=== PATIENT | male | born 1990 | race Caucasian/White ===

== ENCOUNTER 2017-03-14 16:58 | Emergency (ER) | payer OTHER ==
[2017-03-14 17:23] VITALS: BP 139/66
--- NOTE | 2017-03-14 17:40 | UC ---
Skin Complaint HPI - HPI Summary HPI Summary: Pt presents to [facility] with 2 concerns: 1) pt's envronemnt has ongoing issue with bed bugs. Pt has been working to rid the house of the bugs. Pt with multiple, pruritic bites on b/l legs. PT has not taken anything to help with the itching. No drainage. 2) pt with cough productive of yellow-green sputum x 3 days. + fever + fatigue. No n/v. + PO. No otc meds. No ear pain + sinus congestion and PND. decreased sleep second to cough Pt does smoke 1ppd Pts medications reviewed at this visit - History of Current Complaint Chief Complaint: UCRespiratory Time Seen by Provider: 03/14/17 17:38 Stated Complaint: RASH Hx Obtained From: Patient Onset/Duration: Gradual Onset Skin Exposure Onset/Duration: Days Ago Onset Severity: Moderate Current Severity: Moderate Location: Other - b/l LE Character: Pruritus Aggravating: Nothing Alleviating: Nothing Associated Signs & Symptoms: Negative: Nausea, Vomiting - Allergy/Home Medications Allergies/Adverse Reactions: Allergies Allergy/AdvReac Type Severity Reaction Status Date / Time No Known Allergies Allergy Verified 03/14/17 17:23 Review of Systems Constitutional: Fever Skin: Negative Eyes: Negative ENT: Sinus Congestion, Sinus Pain/Tenderness Respiratory: Shortness Of Breath, Cough Cardiovascular: Negative Gastrointestinal: Negative Genitourinary: Negative Motor: Negative Neurovascular: Negative Musculoskeletal: Negative Neurological: Negative Psychological: Negative All Other Systems Reviewed And Are Negative: Yes PMH/Surg Hx/FS Hx/Imm Hx Previously Healthy: Yes - Surgical History Surgical History: None - Family History Known Family History: Positive: Diabetes - Social History Occupation: Employed Full-time Lives: With Family Alcohol Use: None Substance Use Type: None Smoking Status (MU): Heavy Every Day Tobacco Smoker Type: Cigarettes Amount Used/How Often: 1 ppd Physical Exam Triage Information Reviewed: Yes Appearance: Well-Appearing, No Pain Distress - tired appearing, congested, Well- Nourished Vital Signs: Initial Vital Signs Temp 101 F 03/14/17 17:19 Pulse 87 03/14/17 17:19 Resp 16 03/14/17 17:19 BP 139/66 03/14/17 17:19 Pulse Ox 98 03/14/17 17:19 Vital Signs Reviewed: Yes Eye Exam: Normal Eyes: Positive: Conjunctiva Clear ENT: Positive: Hearing grossly normal, Pharynx normal, Nasal congestion, Nasal drainage, TMs normal Dental Exam: Normal Neck exam: Normal Neck: Positive: Supple, Nontender Respiratory Exam: Normal Respiratory: Positive: Chest non-tender, No respiratory distress, No accessory muscle use, Wheezing - few scattered wheeze no rhochni, coarse cough, speaking full easy sentences Cardiovascular Exam: Normal Cardiovascular: Positive: RRR, No Murmur, Pulses Normal Abdominal Exam: Normal Abdomen Description: Positive: Nontender, No Organomegaly Bowel Sounds: Positive: Present Musculoskeletal Exam: Normal Neurological Exam: Normal Psychological Exam: Normal Skin: Positive: Other - Pt with multiple bite appearing lesions to b/l LE + pruritic, some scabed no warmth, no discharge no fluctuance - descrete lesion , erythematough base b/l LE - calf, few on thighs, few on b/l forearms. Course/Dx - Course Course Of Treatment: Pt with multiple wounds on b/l LE and foreamrs c/w bite wound - pt reports bed bugs in home. wounds prurutici. Pt also wtih fever, coarse cough - tobacco user. Will give steroids for itching and bronchitis. abx. secretion hygeine. work note. pcp f/u. return precautions discussed. pt comfortable and in agreement with plan - Diagnoses Provider Diagnoses: bronchitis, insect bites Discharge - Discharge Plan Condition: Stable Disposition: HOME Prescriptions: Amoxicillin/Clavulanate TAB* [Augmentin TAB 875*] 875 mg PO BID #20 tab Methylprednisolone [Medrol Dosepak 4 MG*] 0 mg PO .SEE KRISS INSTRUCTION #1 tab Patient Education Materials: Acute Bronchitis (ED), Bed Bugs (ED) Forms: *Work Release Referrals: Jj Goldstein MD [Primary Care Provider] - Additional Instructions: okay to continue taking Benadryl for itching - do not drive while taking as may cause drowsiness continue with frequent house cleaning, vacuuming, washing bed sheets for bed bugs- you may need to bring in a professional ware cleaner work to decrease cigarette smoking take prednisone and antibiotics as prescribed until gone stay well hydrated. Avoid excess caffeine and alcohol call your doctor to schedule a follow-up appointment. Call your doctor or return with questions or concerns
[2017-03-14] MEDS ORDERED: Acetaminophen TAB* 325 MG PO ONE (17:57)
== END 2017-03-14 18:18 | disposition home or self-care (01) ==
LOC: UCCORT 16:58
DX: S50.862A Insect bite (nonvenomous) of left forearm, initial encounter (principal); S50.861A Insect bite (nonvenomous) of right forearm, initial encounter; S80.862A Insect bite (nonvenomous), left lower leg, initial encounter; S80.861A Insect bite (nonvenomous), right lower leg, initial encounter; W57.XXXA Bitten or stung by nonvenomous insect and other nonvenomous arthropods, initial encounter; Y93.9 Activity, unspecified; Y92.9 Unspecified place or not applicable; J40 Bronchitis, not specified as acute or chronic; F17.210 Nicotine dependence, cigarettes, uncomplicated
CPT/HCPCS: 99202; A9270-GY; G0463

== ENCOUNTER 2017-03-19 22:38 | Observation (INO) | payer SELFPAY ==
[2017-03-19] MEDS ORDERED: NS 0.9% 1000 ML* 1,000 ML IV ONE (23:28)
[2017-03-20] MEDS ORDERED: diPHENhydraMINE IV* 50 MG/ML 1 ml VIAL (BENADRYL) IV PRN (00:33)
[2017-03-20] MEDS ORDERED: Ondansetron INJ* 2 MG/ML VIAL IV PRN (00:33)
[2017-03-20] MEDS ORDERED: Acetaminophen TAB* 325 MG PO PRN (00:33)
[2017-03-20] MEDS ORDERED: HYDROcodone/ACETAMIN 5-325 MG* 1 TAB PO PRN (00:33)
[2017-03-20 00:42] LABS: Comments Flag Yes; Hematocrit 50 % (42-52); Hemoglobin 17.1 g/dl (14.0-18.0); Mean Corpuscular HGB Conc 34 g/dl (31-36); Mean Corpuscular Hemoglobin 31 pg (27-31); Mean Corpuscular Volume 89 fL (80-94); Mean Platelet Volume 8 um3 (7.4-10.4); Red Blood Count 5.59 10^6/ul (4.0-5.4); Red Cell Distribution Width 13 % (10.5-15); White Blood Count 25.9 10^3/ul (3.5-10.8)
[2017-03-20 00:43] LABS: Add Diff/Slide Review? Slide Review Added
[2017-03-20] MEDS ORDERED: Mouth Piece, Nicotine* 1 EACH CARTRIDGE INH PRN (00:44)
[2017-03-20] MEDS ORDERED: Nicotine Inhaler* 10 MG AMP INH PRN (00:44)
[2017-03-20] MEDS ORDERED: NS 0.9% 1000 ML* 1,000 ML IV SCH (00:45)
[2017-03-20 00:57] LABS: Albumin 3.6 g/dL (3.2-5.2); BUN/Creatinine Ratio 13.2 (8-20); Calcium 8.9 mg/dL (8.6-10.3); EGFR African American 157.1 (>60); EGFR Non-African American 122.1 (>60); Globulin 2.8 g/dL (2-4); Potassium 3.3 mmol/L (3.5-5.0); Total Bilirubin 0.4 mg/dL (0.2-1.0); Total Protein 6.4 g/dL (6.4-8.9)
--- NOTE | 2017-03-20 00:58 | PN ---
Progress Note - Progress Note Date of Service: 03/20/17 Note:
[2017-03-20] MEDS: Nystatin TOP POWDER* 15 GM BTL TOPICAL SCH ×4 (02:14→22:40)
--- NOTE | 2017-03-20 02:31 | HP ---
CC: Dr. Goldstein * HISTORY AND PHYSICAL: DATE OF ADMISSION: 03/20/17 PRIMARY CARE PROVIDER: Dr. Goldstein. CHIEF COMPLAINT: Rash. HISTORY OF PRESENT ILLNESS: Mr. Muir is a 26-year-old male, who approximately 2 weeks ago developed what he felt were bed bug bites. He noted that bites started to appear somewhat red. At that same time, he began to develop blisters in the roof of his mouth and on his palms. His daughter was diagnosed with hand, foot, and mouth disease. The patient continued with slight redness surrounding these questionable bed bug bites and with what he felt was hand, foot, and mouth disease; however, was seen in urgent care on the Friday prior to admission and was started on Medrol-Dosepak and Augmentin for a questionable bronchitis. Approximately 1 to 2 days after beginning the Augmentin, he developed progressive redness to the legs, arms, chest, back, and face. The patient has also developed large blisters on his palms, soles, and over his knees. Additionally, his ears on the helix have reportedly blistered and then seeped fluid and crusted over. The patient also noted worsening of the blisters within his mouth approximately 2 to 3 days ago. His groin is also very red and the tissues appear to be seeping fluid per his girlfriend. He has mild pain, especially noted in his hands, feet, and legs. He has had no fever. He does note some mild pain with swallowing. He has had no eye issues. PAST MEDICAL HISTORY: None. PAST SURGICAL HISTORY: None. MEDICATIONS: 1. Medrol Dosepak. 2. Augmentin 875 mg p.o. b.i.d. ALLERGIES: PENICILLIN is being listed now, but I believe this is a new allergy. FAMILY HISTORY: Mom is living, she is 54. He states that she has numerous medical problems but denies coronary artery disease, diabetes, hypertension, stroke, and cancer. Dad at the age of 45 of sepsis. SOCIAL HISTORY: The patient smokes 1 pack per day. He does not drink alcohol. He denies any recreational drug use. 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 He has 2 children. His girlfriend, Chery, would be his healthcare proxy. REVIEW OF SYSTEMS: The patient denies any fevers. His appetite has been poor over the last couple of days. No chest pain, no edema, no cough. He has had some mild shortness of breath that he is attributing to the diagnosis of bronchitis approximately 1 week ago. He has had some mild nausea, no vomiting. He has had diarrhea over the last couple of days going 2 or 3 times per day. No abdominal pain, no hematochezia, no hematuria, no dysuria. He admits to generalized weakness. No sudden change in his vision. He has a mild sore throat upon swallowing. No joint pains or muscle pains. He has the diffuse rash as noted above, no anxiety or depression. PHYSICAL EXAMINATION GENERAL: The patient is a well-developed, young male sitting in the stretcher with a very visible, markedly erythematous diffuse rash on his feet, legs, arms , and face. VITAL SIGNS: Blood pressure 132/76, pulse 101, respirations 18, temp 98.7, O2 sat 99% on room air. HEENT: Pupils are equal, they are round, they react to light. Extraocular movements intact. Oropharynx is clear. There appears to be ruptured blisters on the roof of the patient's mouth and questionable involvement on the mucosal surface of the lower lip. The patient has poor dentition. There is no submandibular, cervical, or supraclavicular adenopathy. Thyroid is not enlarged. No thyroid nodules are noted. PULMONARY: Lungs are clear to auscultation bilaterally. CARDIAC: Normal S1 and S2. Regular rate and rhythm. I do not appreciate any murmurs. There is no lower extremity edema. ABDOMEN: Bowel sounds are present. Abdomen is soft, nontender, and nondistended. MUSCULOSKELETAL: There is no cyanosis or clubbing of the digits. There is full active range of motion of all 4 extremities. NEURO: Cranial nerves II through XII grossly intact. Sensation is intact to light touch throughout. Strength is 5/5 and symmetric in both the upper and lower extremities bilaterally. PSYCH: The patient is alert, he is oriented x3, affect appears appropriate. SKIN: Warm and dry. There is a diffuse erythematous macular plaque-appearing rash noted on the patient's dorsum of the feet, legs, trunk, arms, and face. The erythema is appearing to be confluent in some areas and as round macules in others, especially on the arms, chest, and back. The rash is most confluent on the lower extremities. There are large bullae on the palms bilaterally and the soles of the feet. There are also bullae noted over the extensor surface of the knees bilaterally. There appears to be sloughing of the skin between the toes on both feet. There are small pustules noted overlying the lower thighs, knees, and upper legs. There are other areas of the rash where there appeared to be small crusted areas. The helix on both ears appears to be crusted. In the patient's groin, there appears to be a candidal infection with significant weeping of fluid. See pictures placed in progress note in the electronic medical record. DIAGNOSTIC STUDIES/LAB DATA: Labs are pending. Chest x-ray to my interpretation appears to be clear. ASSESSMENT AND PLAN: Mr. Muir is a 26-year-old male who approximately 2 weeks ago had what he felt were bed bug bites, then hand, foot, and mouth disease. He then went to the urgent care the Friday prior to this admission where he was prescribed a Medrol Dosepak and Augmentin. Approximately 1 to 2 days after starting Augmentin, he developed extensive, progressive, erythematous rash with bullae formation on the palms and folds of the feet. 1. Diffuse erythematous rash. My differential diagnosis includes Saucedo- Kirk syndrome versus acute generalized exanthematous pustulosis versus erythema multiforme. At this point, the patient's Augmentin will be discontinued and PENICILLIN will be listed as an allergy. He will receive IV fluid hydration as well as Benadryl for itching, as itching does appear to be a large component to the patient's symptoms. He will have Tylenol and Narco available for pain control. An Infectious Disease consultation will be requested tomorrow. A punch biopsy would also likely be beneficial as to determine the cause of the patient's rash. At this point, I am still waiting on the patient's lab work. If there are any marked abnormalities, I will act upon these. At this point, I do not believe the patient needs to be transferred to higher level of care; however, if Saucedo-Kirk syndrome becomes the leading diagnosis and he begins to slough off more skin, perhaps he would benefit from transfer. 2. DVT prophylaxis. According to the Adult Thrombosis Prophylaxis Risk Factor Assessment Guide, the patient has a total risk factor score of 0 making him low risk. Ambulation will be utilized as DVT prophylaxis. 3. Code status is full, and again the patient indicates that his girlfriend, Chery, is his healthcare proxy. TIME SPENT: Seventy minutes was spent admitting this patient. [id number]/[facility] #: [id number] SHARRI
--- NOTE | 2017-03-20 07:42 | RAD ---
HISTORY: Generalized rash COMPARISONS: None VIEWS:1: Single frontal portable view of the chest at 11:55 PM FINDINGS: LINES AND TUBES: None. CARDIOMEDIASTINAL SILHOUETTE: The cardiomediastinal silhouette is normal for portable technique. PLEURA: The costophrenic angles are sharp. No pleural abnormalities are noted. LUNG PARENCHYMA: The lungs are clear. ABDOMEN: The upper abdomen is clear. There is no subphrenic gas. BONES AND SOFT TISSUES: No bone or soft tissue abnormalities are noted. IMPRESSION: NO ACTIVE CARDIOPULMONARY DISEASE.
[2017-03-20] MEDS: Nicotine PATCH 21 MG/24 HR* PATCH TRANSDERM SCH (08:33)
--- NOTE | 2017-03-20 08:49 | PN ---
Subjective Date of Service: 03/20/17 Interval History: Patient seen this morning. Timeline reviewed with the patient. States that first skin issues he had were due to bed bug bites that were diffuse on his arms and legs. He said his brother at home had them as well. This preceded the palm/sole/mouth symptoms he had after kissing his daughter who was diagnosed with HFM. He presented to on Friday with above symptoms as well as productive cough and fever and was diagnosed with HFM, bronchitis and was given PO steroids and Augmentin which he began on Friday. He then noticed significant erythema spreading on Friday which was followed by some eruption and crusting in some areas. He reports blistering (in areas not involved with HFM) on the palms, soles and ears. The blistering on the ears have erupted and crusted over. Last dose of Augmentin and steroids was 03/19 evening. He feels that his symptoms do not seem any worse today than yesterday, may be improving a bit. Family History: Unchanged from Admission Social History: Unchanged from Admission Past Medical History: Unchanged from Admission Objective Active Medications: Acetaminophen (Tylenol Tab*) 650 mg PO Q4H PRN Hydrocodone Bitart/Acetaminophen ([place] 5-325 Tab*) 1 tab PO Q4H PRN Device (Nicotine Mouth Piece*) 1 each INH .USE WITH NICOTROL PRN Diphenhydramine HCl (Benadryl Iv*) 25 mg IV Q6H PRN Sodium Chloride (Ns 0.9% 1000 Ml*) 1,000 mls @ 100 mls/hr IV PER RATE AMINA Nicotine (Nicotine Inhaler*) 10 mg INH Q2H PRN Nicotine (Nicotine Patch 21 Mg/24 Hr*) 1 patch TRANSDERM DAILY AMINA Nystatin (Nystatin Top Powder*) 1 applic TOPICAL TID AMINA Ondansetron HCl (Zofran Inj*) 4 mg IV Q6H PRN Pharmacy Profile Note (Nicotine Patch Removal Note*) 1 note FOLLOW UP [facility] Vital Signs 03/20/17 03/20/17 03/20/17 00:36 01:00 01:25 Temperature 98.0 F Pulse Rate 82 Respiratory 18 18 Rate Blood Pressure 126/64 (mmHg) O2 Sat by Pulse 96 100 Oximetry 03/20/17 01:28 Temperature 98.0 F Pulse Rate 82 Respiratory 16 Rate Blood Pressure 126/64 (mmHg) O2 Sat by Pulse 100 Oximetry Oxygen Devices in Use Now: None Appearance: Young, M, laying in bed in NAD Eyes: No Scleral Icterus Ears/Nose/Mouth/Throat: Mucous Membranes Moist Neck: NL Appearance and Movements; NL JVP Respiratory: Symmetrical Chest Expansion and Respiratory Effort, Clear to Auscultation Cardiovascular: NL Sounds; No Murmurs; No JVD, RRR Abdominal: NL Sounds; No Tenderness; No Distention Lymphatic: No Cervical Adenopathy Extremities: No Edema Skin: - - Diffuse, erythematous rash involving face, arms, legs, torso. Some areas are more macular, some areas are raised, more confluence in LEs. Numerous areas with small pustules, particualrly in LEs. Some blistering on B/L palms and soles, negative Nikolsky's sign, some skin breakdown between the toes with some malodourous purulence, also more confluent areas and purulence in the groin , various areas also with significant crusting, particularly the ears, some oral enanthem (small pale vesicles), no significant mucositis Neurological: Alert and Oriented x 3 Result Diagrams: 03/20/17 00:30 03/20/17 00:30 Assess/Plan/Problems-Billing Assessment: Rash in the setting of recent exposure to hand foot and mouth disease, bed bugs and significant worsening ~48 hours after initiation of Augmentin in a 26 yo M - Patient Problems (1) Rash Current Visit: Yes Comment: Appreciate ID assistance. Certianly patient has some areas c/w AGEP, particularly in the LEs, c/w leukocytosis (increased neutrophils and eosinophils). Has already had some crusting over of the lesions. Dr. Grimaldo evaluated the patient, thinks there is also a component of Erythema Multiforme and ?very mild SJS. Augmentin discontinued and PCN added to allergies. Dr. Grimaldo recommended Prednisone 40 mg daily which has been ordered. Will continue to monitor another 24 hours to ensure no worsening of symptoms. HIV and syphilis testing ordered in ED pending. (2) DVT prophylaxis Current Visit: Yes Comment: Ambulate
[2017-03-20] MEDS: predniSONE TAB* 20 MG PO SCH (12:08)
[2017-03-20 12:37] LABS: Syphilis Index < 0.1 Index
--- NOTE | 2017-03-20 14:04 | CONS ---
DATE OF CONSULTATION: 03/20/2017. REQUESTING PHYSICIAN: Dr. Bradley. CONSULTING SERVICE: Infectious Disease. REASON FOR CONSULTATION: Rash. IMPRESSION: 1. He has a diffuse erythematous macule and patchy rash. There are some areas on both legs that are superficial pustulosis and his mucosa includes some superficial bulla and erythema, also present on his scrotum and the soles of his feet.Taken together I think most likely continuum of erythema multiforme and Dillon Kirk with a component of acute generalized exanthematous pustulosis. This is an allergic reaction, most likely due to Augmentin, though it could be also postviral allergic reaction. 2. Recent bed bug bites. 3. Recent diagnosis of bronchitis, treated with Augmentin and then a diagnosis of pspd-yulf-kmn-mouth, which is not clear from any of the pictures that he has that he ever had that and they are clear that the rash all came on after taking Augmentin. 4. Leukocytosis due to number one. RECOMMENDATIONS: 1. Prednisone 4 mg a day for the next few days with fluid hydration. He is already getting better today with Benadryl and fluids. 2. After he is better, we will get him skin testing with an data warehouse architect as an outpatient to see if this is definitely a Penicillin or Amoxicillin reaction. 3. HIV and syphilis antibody testing to which he gives verbal consent. HISTORY OF PRESENT ILLNESS: This 26-year-old man with recent bed bug bites about a zmpy-jka-s-half ago, then he developed cough and fever at the same time that his son had jtnx-buxc-wab-mouth disease and he was told that he had hand- izqk-vvd-ijsed and given Augmentin. Then two days later developed macules on his skin, are red and itchy, they coalesce together. He developed swelling and bulla on his feet, hands, and in his mouth and scrotum. Symptoms regressed. He came to the hospital yesterday. He had a white count of 20,000. He was started on Benadryl and fluids. He has decrease in his itching and no new lesions. Today, he has no skin sloughing, just bulla formation. He has not had a reaction like this in the past to Penicillin. PAST MEDICAL HISTORY: None. MEDICATIONS: 1. Vicodin prn. 2. Nicotine inhaler. 3. Nicotine patch. 4. Zofran IV. 5. Benadryl IV. ALLERGIES: PENICILLIN FAMILY HISTORY: No recurrent infections. The mom is 54, unsure of medical problems. Father at age 45 of sepsis. SOCIAL HISTORY: Lives in [place] with his girlfriend and her son. He has no travel or sick contacts. REVIEW OF SYSTEMS: All negative for review of systems except as noted above. PHYSICAL EXAMINATION: General: He is awake, not in distress. Vital Signs: Temperature 37, heart rate 80, respiratory rate 16, blood pressure 126/64, O2 sat 100 percent on room air. HEENT: There is no conjunctival hemorrhage or conjunctival injection. Oropharynx: He has patchy erythema on his buccal mucosa with a sub-semi area of bulla. Neck: Supple without nuchal rigidity. Lymph nodes: There is no cervical, supraclavicular, inguinal, axillary, or epitrochlear lymphadenopathy. Heart: Regular rate and rhythm without murmurs, rubs or gallops. Lungs: Clear to auscultation bilaterally. Abdomen: Soft, nontender, nondistended. Bowel sounds are present. Skin: There is diffuse erythematous macules and patches on arms, trunk, and legs. Some are 1 to 2 cm round patches with central clearing. On the scrotum, there is small bullae, some that are desquamated. On the bottom of his feet, there are 1 to 2 cm bullae, same as on the hands. In the groin, there is some erythema which is more confluent as well. The rash is blanching in general. Musculoskeletal: There is no spine tenderness to palpation. No joint synovitis. Neurologic: He is oriented times three, follows all commands, moves all of his extremities. LABORATORY DATA: White blood cell count 25, hemoglobin 17, platelets 410, creatinine 0.7, ALT 15. Please see impression and recommendations as outlined above which I have discussed with Dr. Bradley. Thank you for asking me to see Mr. Muir in consultation. [id number]/[facility] #: [id number] SHARRI
[2017-03-20] MEDS ORDERED: Nicotine Patch Removal NOTE FOLLOW UP SCH (21:00)
[2017-03-20] MEDS: NS 0.9% 1000 ML* 1,000 ML IV SCH (22:17)
[2017-03-21 05:42] LABS: Hematocrit 51 % (42-52); Hemoglobin 16.8 g/dl (14.0-18.0); Mean Corpuscular HGB Conc 33 g/dl (31-36); Mean Corpuscular Hemoglobin 30 pg (27-31); Mean Corpuscular Volume 92 fL (80-94); Mean Platelet Volume 8 um3 (7.4-10.4); Red Blood Count 5.55 10^6/ul (4.0-5.4); Red Cell Distribution Width 13 % (10.5-15); White Blood Count 25.7 10^3/ul (3.5-10.8)
[2017-03-21 05:46] LABS: Add Diff/Slide Review? Manual Diff Added; Comments Flag Yes
[2017-03-21] MEDS: NS 0.9% 1000 ML* 1,000 ML IV SCH (05:58)
[2017-03-21 06:02] LABS: BUN/Creatinine Ratio 7.5 (8-20); Calcium 8.2 mg/dL (8.6-10.3); EGFR African American 181.7 (>60); EGFR Non-African American 141.2 (>60); Potassium 3.7 mmol/L (3.5-5.0)
[2017-03-21 06:17] LABS: Eosinophils % 24 % (0-6); Neutrophil % 50 % (38-83); Reactive Lymph % 7 % (0-6)
[2017-03-21 06:18] LABS: Macrocytosis 1+; Microcytosis 1+
[2017-03-21] MEDS: Nicotine PATCH 21 MG/24 HR* PATCH TRANSDERM SCH (07:34)
[2017-03-21] MEDS: predniSONE TAB* 20 MG PO SCH (07:37)
[2017-03-21] MEDS: Nystatin TOP POWDER* 15 GM BTL TOPICAL SCH (07:37)
[2017-03-21 08:03] VITALS: BP 119/65
--- NOTE | 2017-03-21 10:09 | DCNOTE ---
Patient seen this morning. He feels rash overall is improving, does not feel that it has spread at all. Some areas in the L arm with a purplish hue, likely SQ petechial bleeding. On exam, rash still diffuse but overall seems improved, less erythematous, some of the pustules in the LEs seem to have opened and drained, small petechial areas surrounding some of the L arm patches. Areas between toes seem to be improved as well. Discharge home on 3 additional days of PO Prednisone. Close PCP follow-up and will need referral for allergy testing.
--- NOTE | 2017-03-22 04:07 | DS ---
CC: Dr. Goldstein DISCHARGE SUMMARY: DATE OF ADMISSION: 03/20/17 DATE OF DISCHARGE: 03/21/17 PRIMARY CARE PROVIDER: Dr. Goldstein. PRINCIPAL DISCHARGE DIAGNOSES: 1. Adverse skin reaction to Augmentin. 2. Acute generalized exanthematous pustulosis. 3. Erythema multiforme. 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 CONSULTANTS DURING HOSPITALIZATION: Dr. Jayjay Grimaldo, Infectious Disease. STUDIES DONE DURING HOSPITALIZATION: Chest x-ray, impression: No active cardiopulmonary disease. DISCHARGE MEDICATION REGIMEN: 1. Prednisone 40 mg by mouth daily x3 days. 2. Benadryl 25 mg by mouth every 6 hours as needed for itching. 3. Nystatin powder 1 application topically 3 times daily to the groin. HISTORY OF PRESENT ILLNESS AND HOSPITAL SUMMARY: Please see the full history of and physical by Dr. Amy Jacobo for full details. Briefly, Mr. Muir is a 26- year-old man with little past medical history, who presented to the hospital after recently being diagnosed with bug bites and hand, foot, and mouth disease, was prescribed a course of Augmentin for possible bronchitis and subsequently de veloped severe skin reaction. The patient had diffuse rash on his head, face, arms, legs, trunk, an d groin. There were macular erythematous areas most confluent in the lower extremities. He also aponte d some blistering in the palms and soles and some pustules most significantly in the lower extremiti es. It was felt that his rash was due to Augmentin, which was stopped. It was felt that his rash w as likely a combination of AGEP, erythema multiforme, and possibly mild Saucedo-Kirk as there was questionable mucosal involvement. The patient was seen by Dr. Grimaldo, who recommended cessation of antibiotics and some oral prednisone. The following day, there was no worsening of the rash and some slight improvement. The patient felt well and he was discharged home with plans for close PCP followup. The patient should also have outpatient allergy referral to undergo allergy testing to neal if he is allergic to amoxicillin specifically or all penicillins. HIV and syphilis testing were negative. TIME SPENT: Total time spent on this discharge 45 minutes. This is a summary of the [facility], please see the full medical record for further details. [id number]/[facility] #: [id number]
--- NOTE | 2017-03-22 20:56 | ED ---
Fabian Stephens Benjamin, scribed for Laxmi Euceda MD on 03/19/17 at 2335 . Skin Complaint - HPI Summary HPI Summary: 26yo male presents with generalized patch red rash all throughout his body. Pt had bed bug bites 2 weeks ago and states his rash initially started 8 days ago. Rash initially started appearing only on his extremities but it is also on his stomach, back, and face. Pt also reports having a fever of 100.1F 4 days ago along with blisters on his palm, and sores in his mouth. His rashes are itchy. Pt had recent dx of bronchitis and pt was rxed amoxicillin and predizone for his bronchitis and bed bug bites. - History of Current Complaint Chief Complaint: EDRashSkinAbscess Time Seen by Provider: 03/19/17 23:02 Stated Complaint: POSS ALLERGIC REACTION Hx Obtained From: Patient, Family/Licensed Final Expense Agents - partner Pain Intensity: 5 - Allergy/Home Medications Allergies/Adverse Reactions: Allergies Allergy/AdvReac Type Severity Reaction Status Date / Time Amoxicillin [From Augmentin] Allergy Rash Verified 03/21/17 06:34 Clavulanic Acid Allergy Rash Verified 03/21/17 06:34 [From Augmentin] Penicillins Allergy Rash Verified 03/20/17 03:51 PMH/Surg Hx/FS Hx/Imm Hx Infectious Disease History: No Infectious Disease History: Denies: Traveled Outside the [place] in Last 30 Days - Family History Known Family History: Positive: Diabetes - Social History Alcohol Use: None Substance Use Type: Reports: None Smoking Status (MU): Heavy Every Day Tobacco Smoker Type: Cigarettes Amount Used/How Often: 1 ppd Review of Systems Positive: Fever Eyes: Negative ENT: Negative Cardiovascular: Negative Respiratory: Negative Gastrointestinal: Negative Genitourinary: Negative Musculoskeletal: Negative Positive: Rash - generalized red patchy rash that is also itchy Neurological: Negative Psychological: Normal All Other Systems Reviewed And Are Negative: Yes Physical Exam Triage Information Reviewed: Yes Vital Signs On Initial Exam: Initial Vitals Temp Pulse Resp BP Pulse Ox 98.7 F 101 18 132/76 99 03/19/17 22:41 03/19/17 22:41 03/19/17 22:41 03/19/17 22:41 03/19/17 22:41 Vital Signs Reviewed: Yes Appearance: Positive: Well-Appearing, No Pain Distress, Well-Nourished Skin: Positive: Other - Coalescing, erythematous s red rash generalized including face. Desquamation between his toes, blisters on hands and soles of feet. Head/Face: Positive: Normal Head/Face Inspection Eyes: Positive: Normal, EOMI ENT: Positive: Normal ENT inspection Neck: Positive: Supple, Nontender Respiratory/Lung Sounds: Positive: Clear to Auscultation, Breath Sounds Present Cardiovascular: Positive: RRR Abdomen Description: Positive: Nontender, Soft Bowel Sounds: Positive: Present Musculoskeletal: Positive: Strength/ROM Intact Neurological: Positive: Sensory/Motor Intact, Alert, Oriented to Person Place, Time, CN Intact II-III Psychiatric: Positive: Affect/Mood Appropriate Diagnostics - Vital Signs Vital Signs Temp Pulse Resp BP Pulse Ox 03/19/17 22:41 98.7 F 101 18 132/76 99 - Laboratory Lab Results: Lab Results 03/20/17 03/20/17 03/20/17 Range/Units 00:30 00:30 00:30 WBC 25.9 H (3.5-10.8) 10^3/ul RBC 5.59 H (4.0-5.4) 10^6/ul Hgb 17.1 (14.0-18.0) g/dl Hct 50 (42-52) % MCV 89 (80-94) fL MCH 31 (27-31) pg MCHC 34 (31-36) g/dl RDW 13 (10.5-15) % Plt Count 410 (150-450) 10^3/ul MPV 8 (7.4-10.4) um3 Neut % (Auto) 62.5 (38-83) % Lymph % (Auto) 16.2 L (25-47) % Stephenson % (Auto) 6.8 (1-9) % Eos % (Auto) 13.8 H (0-6) % Baso % (Auto) 0.7 (0-2) % Absolute Neuts (auto) 16.2 H (1.5-7.7) 10^3/ul Absolute Lymphs (auto) 4.2 (1.0-4.8) 10^3/ul Absolute Monos (auto) 1.8 H (0-0.8) 10^3/ul Absolute Eos (auto) 3.6 H (0-0.6) 10^3/ul Absolute Basos (auto) 0.2 (0-0.2) 10^3/ul Absolute Nucleated RBC 0.02 10^3/ul Nucleated RBC % 0.1 INR (Anticoag Therapy) 1.08 (0.89-1.11) APTT 23.7 L (26.0-36.3) seconds Sodium 130 L (133-145) mmol/L Potassium 3.3 L (3.5-5.0) mmol/L Chloride 94 L (101-111) mmol/L Carbon Dioxide 26 (22-32) mmol/L Anion Gap 10 (2-11) mmol/L BUN 10 (6-24) mg/dL Creatinine 0.76 (0.67-1.17) mg/dL Est GFR ( Amer) 157.1 (>60) Est GFR (Non-Af Amer) 122.1 (>60) BUN/Creatinine Ratio 13.2 (8-20) Glucose 122 H (70-100) mg/dL Lactic Acid (0.5-2.0) mmol/L Calcium 8.9 (8.6-10.3) mg/dL Total Bilirubin 0.40 (0.2-1.0) mg/dL AST 11 L (13-39) U/L ALT 15 (7-52) U/L Alkaline Phosphatase 135 H (34-104) U/L Troponin I 0.00 (<0.04) ng/mL Total Protein 6.4 (6.4-8.9) g/dL Albumin 3.6 (3.2-5.2) g/dL Globulin 2.8 (2-4) g/dL Albumin/Globulin Ratio 1.3 (1-3) Syphilis IgG Antibody (Nonreactive) HIV 1&2 Antibody (Nonreactive) 03/20/17 03/20/17 Range/Units 00:30 00:30 WBC (3.5-10.8) 10^3/ul RBC (4.0-5.4) 10^6/ul Hgb (14.0-18.0) g/dl Hct (42-52) % MCV (80-94) fL MCH (27-31) pg MCHC (31-36) g/dl RDW (10.5-15) % Plt Count (150-450) 10^3/ul MPV (7.4-10.4) um3 Neut % (Auto) (38-83) % Lymph % (Auto) (25-47) % Stephenson % (Auto) (1-9) % Eos % (Auto) (0-6) % Baso % (Auto) (0-2) % Absolute Neuts (auto) (1.5-7.7) 10^3/ul Absolute Lymphs (auto) (1.0-4.8) 10^3/ul Absolute Monos (auto) (0-0.8) 10^3/ul Absolute Eos (auto) (0-0.6) 10^3/ul Absolute Basos (auto) (0-0.2) 10^3/ul Absolute Nucleated RBC 10^3/ul Nucleated RBC % INR (Anticoag Therapy) (0.89-1.11) APTT (26.0-36.3) seconds Sodium (133-145) mmol/L Potassium (3.5-5.0) mmol/L Chloride (101-111) mmol/L Carbon Dioxide (22-32) mmol/L Anion Gap (2-11) mmol/L BUN (6-24) mg/dL Creatinine (0.67-1.17) mg/dL Est GFR ( Amer) (>60) Est GFR (Non-Af Amer) (>60) BUN/Creatinine Ratio (8-20) Glucose (70-100) mg/dL Lactic Acid 2.5 H* (0.5-2.0) mmol/L Calcium (8.6-10.3) mg/dL Total Bilirubin (0.2-1.0) mg/dL AST (13-39) U/L ALT (7-52) U/L Alkaline Phosphatase (34-104) U/L Troponin I (<0.04) ng/mL Total Protein (6.4-8.9) g/dL Albumin (3.2-5.2) g/dL Globulin (2-4) g/dL Albumin/Globulin Ratio (1-3) Syphilis IgG Antibody Nonreactive (Nonreactive) HIV 1&2 Antibody Nonreactive (Nonreactive) Result Diagrams: 03/21/17 05:34 03/21/17 05:34 Lab Statement: Any lab studies that have been ordered have been reviewed, and results considered in the medical decision making process. Course/Dx - Course Course Of Treatment: Reviewed pts medication and allergy lists. Discussed with Dr. Jacobo (hospitalist) at 23:16. Concern for drug reaction, vs brain santiago, vs REID pt admitted - Diagnoses Provider Diagnoses: Rash Discharge - Discharge Plan Condition: Good Disposition: ADMITTED TO [facility] The documentation as recorded by the Fabian durand Benjamin accurately reflects the service I personally performed and the decisions made by me, Laxmi Euceda MD.
== END 2017-03-21 12:00 | disposition home or self-care (01) ==
LOC: ED 22:38 → INTOOBSV 03-20 00:33 → MED 03-20 00:33
PROVIDERS: ADMIT Hospitalist; ATTEND Hospitalist
DX: L27.0 Generalized skin eruption due to drugs and medicaments taken internally (principal); T36.0X5A Adverse effect of penicillins, initial encounter; R21 Rash and other nonspecific skin eruption; F17.210 Nicotine dependence, cigarettes, uncomplicated; D72.829 Elevated white blood cell count, unspecified; Z11.3 Encounter for screening for infections with a predominantly sexual mode of transmission; Z11.4 Encounter for screening for human immunodeficiency virus [HIV]
CPT/HCPCS: 36415; 71010; 80048; 80053; 83605; 84484; 85025; 85610; 85730; 86592; 86703; 87040; 96374; 99283; A9270-GY; G0378; J1200; J7512